=== PATIENT | male | born 2000 | race Caucasian/White ===

== ENCOUNTER 2019-07-18 16:26 | Emergency (ER) | payer OTHER ==
[~2019-07-18] VITALS: Ht 182.9 cm; Wt 81.0 kg
[2019-07-18 16:37] VITALS: BP 144/75
--- NOTE | 2019-07-18 16:51 | PHYS DOC ---
Past History Past Medical History: No Pertinent History Past Surgical History: Appendectomy Alcohol Use: None Adult General Chief Complaint Chief Complaint: SORE THROAT HPI HPI Patient is a 19-year-old male who presents with complaint of feeling under the weather for the past 2 days with some flulike symptoms including body aches, sore throat, cough and some shortness of breath. No reported fevers. Patient works at a [employer] and states he has also been to the [employer] recently. No sick contacts that have been known. No medication taken prior to arrival. Review of Systems Review of Systems All other systems were reviewed and found to be within normal limits, except as documented in this note. Allergies Allergies Allergies Coded Allergies Type Severity Reaction Last Updated Verified No Known Drug Allergies 07/18/19 No Physical Exam Physical Exam Constitutional: Well developed, well nourished, no acute distress, non-toxic appearance. [] HENT: Normocephalic, atraumatic, bilateral external ears normal, oropharynx moist, no oral exudates, nose normal. Moderate posterior pharynx erythema Eyes: PERRLA, EOMI, conjunctiva normal, no discharge. [] Neck: Normal range of motion, no tenderness, supple, no stridor. [] Cardiovascular:Heart rate regular rhythm, no murmur [] Lungs & Thorax: Bilateral breath sounds clear to auscultation [] Abdomen: Bowel sounds normal, soft, no tenderness, no masses, no pulsatile masses. [] Skin: Warm, dry, no erythema, no rash. [] Back: No tenderness, no CVA tenderness. [] Extremities: No tenderness, no cyanosis, no clubbing, ROM intact, no edema. [] Neurologic: Alert and oriented X 3, normal motor function, normal sensory function, no focal deficits noted. [] Psychologic: Affect normal, judgement normal, mood normal. [] Current Patient Data Vital Signs Vital Signs Date Time Temp Pulse Resp B/P (MAP) Pulse Ox O2 Delivery O2 Flow Rate FiO2 07/18/19 16:37 97.5 64 18 144/75 (98) Room Air 99.0 EKG EKG [] Radiology/Procedures Radiology/Procedures EXAM: CHEST PA LATERAL INDICATION: Cough. TECHNIQUE: PA and lateral views COMPARISON: None FINDINGS: The heart size is normal. The great vessels appear unremarkable. There is no hilar or mediastinal mass. The lungs are clear. There is no pleural effusion or pneumothorax. There are no significant osseous abnormalities. IMPRESSION: No active cardiopulmonary disease.[] Course & Med Decision Making Course & Med Decision Making Pertinent Labs and Imaging studies reviewed. (See chart for details) This patient was seen for cough and sore throat with congestion and some shortness of breath. His chest x-ray is unremarkable and he has negative for influenza and for strep. I will start him on steroids and he is instructed to return to the ER for worsening symptoms. Dragon Disclaimer Dragon Disclaimer This electronic medical record was generated, in whole or in part, using a voice recognition dictation system. Departure Departure: Impression: Primary Impression: Viral bronchitis Disposition: HOME, SELF-CARE Condition: STABLE Referrals: PCP,UNKNOWN (PCP) Patient Instructions: Acute Bronchitis Additional Instructions: Please return to the ER or follow-up with your doctor if your symptoms worsen. Please take ibuprofen and Tylenol every 3-4 hours for body aches and fever. Please push oral fluids. Scripts Prednisone (PREDNISONE) 20 Mg Tablet 40 MG PO DAILY for Bronchitis for 5 Days, #10 TAB Prov: JESSICA PAYTON DO 07/18/19 JESSICA PAYTON DO Jul 18, 2019 16:51
--- NOTE | 2019-07-18 17:08 | RAD ---
EXAM: CHEST PA LATERAL INDICATION: Cough. TECHNIQUE: PA and lateral views COMPARISON: None FINDINGS: The heart size is normal. The great vessels appear unremarkable. There is no hilar or mediastinal mass. The lungs are clear. There is no pleural effusion or pneumothorax. There are no significant osseous abnormalities. IMPRESSION: No active cardiopulmonary disease. Electronically signed by: Phong Alcantara MD (07/18/2019 5:05 PM) [id number]
[2019-07-18 17:28] LABS: INFLUENZA A PATIENT NEGATIVE (NEGATIVE); INFLUENZA B PATIENT NEGATIVE (NEGATIVE)
[2019-07-18] MEDS ORDERED: PRED20TA PO (17:37)
== END 2019-07-18 17:42 | disposition home or self-care (01) ==
LOC: ER 16:26
DX: J20.8 Acute bronchitis due to other specified organisms (principal)
CPT/HCPCS: 71046; 87070; 87804; 87880; 99284

== ENCOUNTER 2020-07-15 18:06 | Emergency (ER) | payer OTHER ==
[~2020-07-15] VITALS: Ht 185.4 cm; Wt 83.0 kg
[~2020-07-15 18:06] MED LIST: PRED20TA PO
[2020-07-15 18:50] VITALS: BP 117/71
[2020-07-15] MEDS: LIDOCAINE/EPI/TETRACAINE TOPICAL GEL 3 ML. TP ONE (19:30)
[2020-07-15] MEDS ORDERED: CEPH500C PO (20:00)
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
[2020-07-15] MEDS ORDERED: CEPHALEXIN 250 MG CAPSULE ONE (20:19)
[2020-07-15] MEDS: CEPHALEXIN 250 MG CAPSULE PO ONE (20:22)
== END 2020-07-15 20:24 | disposition home or self-care (01) ==
LOC: ER 18:06
DX: S31.821A Laceration without foreign body of left buttock, initial encounter (principal); W26.0XXA Contact with knife, initial encounter; Y93.89 Activity, other specified; Y92.89 Other specified places as the place of occurrence of the external cause; Y99.8 Other external cause status
CPT/HCPCS: 12001; 99283

== ENCOUNTER 2020-08-27 22:45 | Emergency (ER) | payer OTHER ==
[~2020-08-27] VITALS: Ht 185.4 cm; Wt 81.4 kg
[~2020-08-27 22:45] MED LIST changes: +CEPH500C PO
[2020-08-27 22:50] VITALS: BP 129/64
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
[2020-08-27] MEDS ORDERED: IBUPROFEN 800 MG TABLET. PO ONE (23:15)
--- NOTE | 2020-08-27 23:26 | RAD ---
Study: XR SHOULDER_RIGHT 2+ VIEWS Indication: Right shoulder pain. Comparison: None. Findings: Right shoulder pain. Alignment is anatomic. No acute fracture or relevant arthrosis. The partially assessed right-sided ribs are grossly intact. Impression: No fracture or malalignment. Electronically signed by: TARIQ MARINELLI MD (08/27/2020 11:23 PM) [facility]
[2020-08-27] MEDS ORDERED: ACETAMINOPHEN 500 MG TABLET PO ONE (23:30)
== END 2020-08-27 23:47 | disposition home or self-care (01) ==
LOC: ER 22:45
DX: M25.511 Pain in right shoulder (principal); G89.11 Acute pain due to trauma; Y08.89XA Assault by other specified means, initial encounter; Y99.8 Other external cause status; Y92.148 Other place in prison as the place of occurrence of the external cause; Y93.89 Activity, other specified
CPT/HCPCS: 73030; 99283